=== PATIENT | female | born 2000 | race Two or more races ===

== ENCOUNTER 2020-07-29 11:23 | Outpatient (REF) | payer MEDICAID, SELFPAY | END 2020-07-29 11:24 | disposition home or self-care (01) | LOC: HO.LAB 11:23 | PROVIDERS: PCP Pediatrics Adolescent Medicine; Visit Provider Internal Medicine | DX: Z20.828 Contact with and (suspected) exposure to other viral communicable diseases (principal) | CPT/HCPCS: 87635 ==